=== PATIENT | male | born 1935 | race Caucasian/White ===

== ENCOUNTER 2020-12-05 10:13 | Outpatient (CLI) | payer MEDICARE | END 2020-12-05 23:59 | disposition home or self-care (01) | LOC: CARD 10:13 | PROVIDERS: ATTEND Internal Medicine Cardiovascular Disease | DX: I06.1 Rheumatic aortic insufficiency (principal); I25.2 Old myocardial infarction; Z95.1 Presence of aortocoronary bypass graft ==

== ENCOUNTER 2020-12-12 10:57 | Day surgery (SDC) | payer MEDICARE ==
[~2020-12-12] VITALS: Ht 180.3 cm; Wt 84.1 kg
[2020-12-12 13:23] VITALS: BP 163/72
== END 2020-12-12 16:12 | disposition home or self-care (01) ==
LOC: CACL 10:57
PROVIDERS: ATTEND Internal Medicine Cardiovascular Disease
DX: R07.9 Chest pain, unspecified (principal); I25.10 Atherosclerotic heart disease of native coronary artery without angina pectoris; I25.82 Chronic total occlusion of coronary artery; I08.0 Rheumatic disorders of both mitral and aortic valves; I42.9 Cardiomyopathy, unspecified; I25.9 Chronic ischemic heart disease, unspecified; E78.5 Hyperlipidemia, unspecified; Z87.891 Personal history of nicotine dependence
CPT/HCPCS: 36415; 80048; 85025; 93455; 99156; 99157; C1769; C1894; J1644; J2250; J3010; Q9967